=== PATIENT | male | born 1990 | race Caucasian/White ===

== ENCOUNTER 2018-05-17 10:52 | Observation (INO) ==
[2018-05-17] MEDS ORDERED: 0.9 % Sodium Chloride 1,000 ML IVC ONE (11:50)
[2018-05-17 12:39] LABS: Basophils # 0.1 K/mcL (0.0-0.2); Basophils % 1.1 %; Eosinophils # 0.1 K/mcL (0.0-0.6); Eosinophils % 1.7 %; Hematocrit 48.7 % (37.5-50.1); Hemoglobin 16.7 g/dL (12.9-16.9); Immature Granulocytes % 0.2 % (0-4); Lymphocytes # 2.2 K/mcL (0.6-4.6); Lymphocytes % 48.5 %; Mean Corpuscular HGB Conc 34.3 g/dL (31.6-35.5); Mean Corpuscular Hemoglobin 29.3 pg (28.0-33.3); Mean Corpuscular Volume 85.6 fL (83.0-100.0); Mean Platelet Volume 10.4 fL (9.4-12.4); Monocytes # 0.5 K/mcL (0.0-1.3); Monocytes % 10.3 %; Neutrophils # 1.8 K/mcL (1.6-8.9); Platelet Count 191 K/mcL (140-400); Red Blood Count 5.69 M/mcL (4.19-5.50); Red Cell Distribution Width 15.1 % (11.5-14.5); Segmented Neutrophils % 38.2 %
[2018-05-17 12:46] LABS: INR 1.2; Prothrombin Time 13.4 Seconds (9.4-12.1)
[2018-05-17 13:02] LABS: Bilirubin,Urine Large (Negative); Blood,Urine Negative (Negative); Clarity,Urine Turbid (Clear); Color,Urine Orange (Yellow); Glucose,Urine (UA) Normal (Normal); Ketones,Urine Negative (Negative); Leukocyte Esterase,Urine Trace (Negative); Nitrite,Urine Negative (Negative); PH,Urine 6.5 pH Units (5.0-8.0); Protein,Urine Negative (Neg-Trace); Specific Gravity,Urine 1.018 (1.010-1.025); Urobilinogen,Urine Normal (Normal)
[2018-05-17 13:03] LABS: Bacteria,Urine None Seen per hpf (None-Few); Hyaline Casts,Urine None Seen per lpf (None-Few); RBC,Urine 0-3 per hpf (0-3); Squamous Epithelial Cell,Urine None Seen per lpf (None-Few); WBC,Urine 0-3 per hpf (0-3)
[2018-05-17] MEDS ORDERED: *HR* Morphine 2 MG/ML SYRINGE IVP ONE (13:15)
[2018-05-17] MEDS ORDERED: Ondansetron 4 MG/2 ML VIAL IVP ONE (13:15)
[2018-05-17 13:16] LABS: Alanine Aminotransferase 1394 Units/L (7-52); Albumin 3.7 g/dL (3.5-5.7); Albumin/Globulin Ratio 1.2 (1.1-2.2); Alkaline Phosphatase 241 Units/L (34-104); Aspartate Amino Transferase 641 Units/L (13-39); BUN/Creatinine Ratio 10 (6-26); Bilirubin,Direct 6.4 mg/dL (0.0-0.2); Bilirubin,Indirect 3.4 mg/dL (0.0-1.2); Bilirubin,Total 9.8 mg/dL (0.3-1.0); Blood Urea Nitrogen 7 mg/dL (6-20); Calcium 9.3 mg/dL (8.6-10.3); Carbon Dioxide 30 mEq/L (23-29); Chloride 99 mEq/L (98-107); Globulin 3.2 g/dL (2.4-3.5); Glucose 95 mg/dL (70-105); Lipase 16 Units/L (11-82); Osmolality,Calculated 282 (280-300); Sodium 137 mEq/L (136-145); Total Protein 6.9 g/dL (6.4-8.9); eGFR For Non-African Americans > 60 (> 60)
[2018-05-17] MEDS ORDERED: Isovue-370 500 ML BOTTLE IVP ONE (13:27)
--- NOTE | 2018-05-17 13:39 | Emergency Department Note ---
Disposition Clinical Impression: Hepatitis Disposition: Admitted As Inpatient Condition: Fair Abdominal Pain HPI - General Chief Complaint: ED Abdominal Pain Stated Complaint: jaundice Time Seen by Provider: 05/17/18 12:02 Source: patient Mode of arrival: ambulatory Limitations: no limitations Nursing Notes Reviewed: Yes Vital Signs Reviewed: Yes - History of Present Illness HPI Narrative: Patient with a history of hepatitis B and recent diagnosis of influenza A positive at PCPs office earlier in the week presenting for evaluation of worsening right upper quadrant pain with associated jaundice. Symptoms have been progressively worse in nature. Nausea but no vomiting. Pain Scale: 5 - Related Data Home Medications Medication Instructions Recorded Confirmed RX: No Known Home Drugs 05/17/18 05/17/18 Allergies Allergy/AdvReac Type Severity Reaction Status Date / Time No Known Allergies Allergy Verified 05/17/18 11:00 Review of Systems: CONSTITUTIONAL: Weakness and fatigue without fever or chills. HEENT: Eyes: No visual changes. Ears, Nose, Throat: No hearing loss, difficulty talking or unable to swallow. SKIN: No rash or itching. CARDIOVASCULAR: No chest pain, chest pressure or chest discomfort. No palpitations or edema. RESPIRATORY: No shortness of breath, cough or sputum. GASTROINTESTINAL: Abdominal pain with nausea but no diarrhea GENITOURINARY: No burning on urination or hematuria. NEUROLOGICAL: No headache, dizziness, syncope, paralysis, ataxia, numbness or ti ngling in the extremities. No change in bowel or bladder control. MUSCULOSKELETAL: No muscle pain, back pain, joint pain or stiffness. Abdominal Pain PMH - Past Medical History Medical history: Reports: no medical history Male Surgical History: Reports: other - Social History Smoking status: Current every day smoker Alcohol use: Reports: occasionally Drug use: Reports: none Physical Exam General: Well appearing, nontoxic, no acute distress Head: Normocephalic Atraumatic Eyes: PERRL, EOMI, jaundice ENT: Airway patent, no stridor Neck: supple, no meningismus Chest: Lungs clear to auscultation bilateral Cardiac: Regular rate and rhythm, no murmurs, rubs or gallops Abdomen: soft, moderate tenderness the right upper quadrant, nondistended; no guarding, rebound, or tenderness to percussion Musculoskeletal: Calves symmetric, nontender. Skin: No rash, normal skin tone. Neuro: Alert and Oriented to person, place, and time; No obvious focal deficit. - General Limitations: no limitations General appearance: alert, in no apparent distress Course - Reevaluation(s) Reevaluation #1: Discussed findings as well as positive hepatitis A. Patient states continued nausea and feeling as these can vomit. Concern for inability to tolerate by mouth. Patient will be admitted for further management. - Consultations Consultation #1: Was asked by the hospitalist consult GI prior to admission. Consultation #2: GI recommends symptomatically management. Hydration and discharge once able to tolerate by mouth Consultation #3: Discussed with hospitalist. Patient accepted for admission. Vital Signs Temperature 97.7 F 05/17/18 10:56 Pulse Rate 87 05/17/18 10:56 Respiratory Rate 16 05/17/18 10:56 Blood Pressure 163/105 05/17/18 10:56 O2 Sat by Pulse Oximetry 98 05/17/18 10:56 Temperature 98.6 F 05/17/18 17:56 Pulse Rate 78 05/17/18 17:56 Respiratory Rate 16 05/17/18 17:56 Blood Pressure 156/90 05/17/18 17:56 O2 Sat by Pulse Oximetry 97 05/17/18 17:56 Oxygen Delivery Oxygen Delivery Room Air Abdominal Pain - Lab Data Result diagrams: 05/17/18 11:50 05/17/18 11:50 Lab Results 05/17/18 05/17/18 05/17/18 Range/Units 11:50 11:50 11:50 WBC 4.6 (4.3-11.1) K/mcL RBC 5.69 H (4.19-5.50) M/mcL Hgb 16.7 (12.9-16.9) g/dL Hct 48.7 (37.5-50.1) % MCV 85.6 (83.0-100.0) fL MCH 29.3 (28.0-33.3) pg MCHC 34.3 (31.6-35.5) g/dL RDW 15.1 H (11.5-14.5) % Plt Count 191 (140-400) K/mcL MPV 10.4 (9.4-12.4) fL Immature Gran % 0.2 (0-4) % Seg Neutrophils % 38.2 % Lymphocytes % 48.5 % Monocytes % 10.3 % Eosinophils % 1.7 % Basophils % 1.1 % Neutrophils # 1.8 (1.6-8.9) K/mcL Lymphocytes # 2.2 (0.6-4.6) K/mcL Monocytes # 0.5 (0.0-1.3) K/mcL Eosinophils # 0.1 (0.0-0.6) K/mcL Basophils # 0.1 (0.0-0.2) K/mcL PT 13.4 H (9.4-12.1) Seconds INR 1.2 Sodium 137 (136-145) mEq/L Potassium 4.0 (3.5-5.1) mEq/L Chloride 99 (98-107) mEq/L Carbon Dioxide 30 H (23-29) mEq/L BUN 7 (6-20) mg/dL Creatinine 0.68 L (0.70-1.30) mg/dL Est GFR ( Amer) > 60 (> 60) Est GFR (Non-Af Amer) > 60 (> 60) BUN/Creatinine Ratio 10 (6-26) Glucose 95 (70-105) mg/dL Calculated Osmolality 282 (280-300) Calcium 9.3 (8.6-10.3) mg/dL Total Bilirubin 9.8 H (0.3-1.0) mg/dL Direct Bilirubin 6.4 H (0.0-0.2) mg/dL Indirect Bilirubin 3.4 H (0.0-1.2) mg/dL AST 641 H (13-39) Units/L ALT 1394 H (7-52) Units/L Alkaline Phosphatase 241 H (34-104) Units/L Serum Total Protein 6.9 (6.4-8.9) g/dL Albumin 3.7 (3.5-5.7) g/dL Globulin 3.2 (2.4-3.5) g/dL Albumin/Globulin Ratio 1.2 (1.1-2.2) Lipase 16 (11-82) Units/L Urine Color (Yellow) Urine Clarity (Clear) Urine pH (5.0-8.0) pH Units Ur Specific Stuart (1.010-1.025) Urine Protein (Neg-Trace) mg/dL Urine Glucose (UA) (Normal) mg/dL Urine Ketones (Negative) mg/dL Urine Blood (Negative) Urine Nitrite (Negative) Urine Bilirubin (Negative) Urine Urobilinogen (Normal) mg/dL Ur Leukocyte Esterase (Negative) Urine Microscopic RBC (0-3) per hpf Urine Microscopic WBC (0-3) per hpf Ur Squamous Epith Cells (None-Few) per lpf Urine Bacteria (None-Few) per hpf Hyaline Casts (None-Few) per lpf Ur Culture Indicated? (NO) Acetaminophen < 10 L (10-20) mcg/mL Hepatitis A IgM Ab (Nonreactive) Hep Bs Antigen (Nonreactive) Hep B Core IgM Ab (Nonreactive) Hepatitis C Ab Screen (Nonreactive) 05/17/18 05/17/18 Range/Units 11:50 12:50 WBC (4.3-11.1) K/mcL RBC (4.19-5.50) M/mcL Hgb (12.9-16.9) g/dL Hct (37.5-50.1) % MCV (83.0-100.0) fL MCH (28.0-33.3) pg MCHC (31.6-35.5) g/dL RDW (11.5-14.5) % Plt Count (140-400) K/mcL MPV (9.4-12.4) fL Immature Gran % (0-4) % Seg Neutrophils % % Lymphocytes % % Monocytes % % Eosinophils % % Basophils % % Neutrophils # (1.6-8.9) K/mcL Lymphocytes # (0.6-4.6) K/mcL Monocytes # (0.0-1.3) K/mcL Eosinophils # (0.0-0.6) K/mcL Basophils # (0.0-0.2) K/mcL PT (9.4-12.1) Seconds INR Sodium (136-145) mEq/L Potassium (3.5-5.1) mEq/L Chloride (98-107) mEq/L Carbon Dioxide (23-29) mEq/L BUN (6-20) mg/dL Creatinine (0.70-1.30) mg/dL Est GFR ( Amer) (> 60) Est GFR (Non-Af Amer) (> 60) BUN/Creatinine Ratio (6-26) Glucose (70-105) mg/dL Calculated Osmolality (280-300) Calcium (8.6-10.3) mg/dL Total Bilirubin (0.3-1.0) mg/dL Direct Bilirubin (0.0-0.2) mg/dL Indirect Bilirubin (0.0-1.2) mg/dL AST (13-39) Units/L ALT (7-52) Units/L Alkaline Phosphatase (34-104) Units/L Serum Total Protein (6.4-8.9) g/dL Albumin (3.5-5.7) g/dL Globulin (2.4-3.5) g/dL Albumin/Globulin Ratio (1.1-2.2) Lipase (11-82) Units/L Urine Color Gregory A (Yellow) Urine Clarity Turbid A (Clear) Urine pH 6.5 (5.0-8.0) pH Units Ur Specific Stuart 1.018 (1.010-1.025) Urine Protein Negative (Neg-Trace) mg/dL Urine Glucose (UA) Normal (Normal) mg/dL Urine Ketones Negative (Negative) mg/dL Urine Blood Negative (Negative) Urine Nitrite Negative (Negative) Urine Bilirubin Large H (Negative) Urine Urobilinogen Normal (Normal) mg/dL Ur Leukocyte Esterase Trace H (Negative) Urine Microscopic RBC 0-3 (0-3) per hpf Urine Microscopic WBC 0-3 (0-3) per hpf Ur Squamous Epith Cells None Seen (None-Few) per lpf Urine Bacteria None Seen (None-Few) per hpf Hyaline Casts None Seen (None-Few) per lpf Ur Culture Indicated? YES A (NO) Acetaminophen (10-20) mcg/mL Hepatitis A IgM Ab Reactive H (Nonreactive) Hep Bs Antigen Nonreactive (Nonreactive) Hep B Core IgM Ab Nonreactive (Nonreactive) Hepatitis C Ab Screen Reactive H (Nonreactive)
[2018-05-17 13:42] LABS: Hepatitis B Surface Antigen Nonreactive (Nonreactive)
[2018-05-17 14:09] LABS: Acetaminophen < 10 mcg/mL (10-20)
[2018-05-17 14:12] LABS: Hepatitis B Core IgM Nonreactive (Nonreactive)
[2018-05-17 14:16] LABS: Hepatitis A Antibody IgM Reactive (Nonreactive)
[2018-05-17] MEDS ORDERED: 0.9 % Sodium Chloride 1,000 ML IVC SCH (15:15)
[2018-05-17] MEDS ORDERED: Naloxone 0.4 MG/ML INJ IVP PRN (16:17)
[2018-05-17] MEDS ORDERED: *HR* OxyCODONE Immed Rel 5 MG TABLET PO PRN (16:20)
--- NOTE | 2018-05-17 16:27 | Internal Med History&Physical ---
Date of Encounter: 05/17/18 Time of Encounter: 16:00 Internal Medicine - H&P: HPI Chief complaint: Abdominal pain Admitted From: Home Plans for Post Hospital Care: Home History of present illness: Mr. Huynh is a 27 year old male presented to ER for abdominal pain for 2 days with yellow eyes for 3-4 days. Past medical history is significant for history of IV drug use, tobacco abuse. Patient started to have right upper quadrant abdominal pain with yellow eyes and dark urine for about 2-3 days. Patient has nausea and vomited several times. Vomiting are stomach content, no blood in it, no coffee-ground emesis. Patient has on and off fever. Patient also has some flulike symptoms. In the emergency room, patient was found abdominal liver function with elevated AST and ALT and bilirubin. CT abdomen shows consistent with acute hepatitis. Hepatitis test shows hepatitis A positive, hepatitis B negative, hepatitis C result is pending. Patient was admitted for further management. Past Med Surg Social Fam HX - Past Medical History Medical history: no medical history - Past Surgical History Additional surgical history: eye sx - Social History Smoking Status: Current every day smoker Alcohol use: occasionally Drug use: none - Family History Mother History Unknown: Yes Internal Medicine - H&P: Meds No Known Home Drugs 05/17/18 [History] Allergy/AdvReac Type Severity Reaction Status Date / Time No Known Allergies Allergy Verified 05/17/18 11:00 All Systems PM: A 10-system review of systems was performed and is negative for pertinent findings except as documented above in the HPI. - Constitutional Vitals: Temp Pulse Resp BP Pulse Ox 97.7 F 83 17 149/95 99 05/17/18 10:56 05/17/18 13:39 05/17/18 12:56 05/17/18 13:39 05/17/18 13:39 Exam: Pt is AAO x 3, in NAD HEENT: NC/AT, PERRL, icterus Neck: Supple, no JVD, no LAD Lungs: CTA b/l Heart: S1S2, RRR Abd: Soft, tender on RUQ, BS present Ext: ROM wnl, no pedal edema Neuro: No focal deficit Internal Med - H&P Results - Labs CBC & Chem 7: 05/17/18 11:50 05/17/18 11:50 Labs: Short CBC 05/17/18 Range/Units 11:50 WBC 4.6 (4.3-11.1) K/mcL Hgb 16.7 (12.9-16.9) g/dL Hct 48.7 (37.5-50.1) % Plt Count 191 (140-400) K/mcL Neutrophils # 1.8 (1.6-8.9) K/mcL BMP 05/17/18 11:50 Sodium 137 Potassium 4.0 Chloride 99 Carbon Dioxide 30 H BUN 7 Creatinine 0.68 L Glucose 95 Calcium 9.3 Liver Function 05/17/18 Range/Units 11:50 Total Bilirubin 9.8 H (0.3-1.0) mg/dL Direct Bilirubin 6.4 H (0.0-0.2) mg/dL AST 641 H (13-39) Units/L ALT 1394 H (7-52) Units/L Alkaline Phosphatase 241 H (34-104) Units/L Albumin 3.7 (3.5-5.7) g/dL Urine 05/17/18 Range/Units 12:50 Urine Color [place] A (Yellow) Urine Clarity Turbid A (Clear) Urine pH 6.5 (5.0-8.0) pH Units Ur Specific [place] 1.018 (1.010-1.025) Urine Protein Negative (Neg-Trace) mg/dL Urine Glucose (UA) Normal (Normal) mg/dL - Impressions ITS Impressions Abdomen/Pelvis CT 05/17/18 13:27 IMPRESSION: Marked periportal edema along with gallbladder wall thickening. The gallbladder is relatively decompressed. Given the patient's history, findings are most compatible with hepatitis or other hepatocellular disease. Cholecystitis does remain in the differential but is considered less likely given the relative decompression of the gallbladder. Enlarged upper abdominal lymph nodes, which are presumably reactive. D/ / Amado Goode MD / Amdao Goode MD Interpreting Provider: Amado Goode MD - Assessment and Plan (1) Acute hepatitis Current Visit: Yes Status: Acute Assessment and plan: Patient has right upper quadrant pain. Liver function shows elevated liver enzymes and bilirubin. Hepatitis A tested positive. - Consider acute hepatitis - Closely monitor patient, symptomatic treatment - Consult GI (2) History of intravenous drug use in remission Current Visit: Yes Status: Acute Assessment and plan: Will also track hep C result, which is pending now (3) Tobacco abuse Current Visit: Yes Status: Acute Assessment and plan: Smoking cessation education. Place patient on nicotine patch (4) DVT prophylaxis Current Visit: Yes Status: Acute Assessment and plan: EPCDs, no anticoagulation because of acute hepatitis. - Time Spent With Patient Total time spent is greater than 50% in coordination of care (as documented) at patient's floor/unit and/or counseling patient: 40 minutes Greater than 35 minutes
[2018-05-17 17:11] LABS: Hepatitis C Virus Antibody Reactive (Nonreactive)
[2018-05-17] MEDS: 0.9 % Sodium Chloride 1,000 ML IVC SCH ×2 (18:15→23:42)
[2018-05-17] MEDS: Nicotine 21 MG PATCH.TD24 TD SCH (18:16)
[2018-05-17] MEDS: Ondansetron 4 MG/2 ML VIAL IVP SCH ×2 (20:05→23:52)
[2018-05-17] MEDS ORDERED: *HR* HYDROcodone/Acet 5/325 mg TABLET PO ONE (23:22)
--- NOTE | 2018-05-17 23:56 | Event Note ---
Date of Encounter: 05/17/18 Time of Encounter: 19:52 Alerted by patient's nurse STEPHANIE Larios that patient was requesting to speak with provider with family present as they had multiple questions. Went to see patient who is resting in bed with his girlfriend. No other family members present. Explained patient's hepatitis A is positive and hepatitis C is reactive. I stated that we would be sending the hepatitis C quant test out to determine positive status. I asked the pt. if he had a recent tattoo or had done IV drugs recently. He stated no new tattoo for years and that he had relapsed several weeks ago and used IV drugs. I explained that there is no current cure for HepA and that he could take anti-viral medications for HepC if he was determined to be positive. I explained that HepA is spread through oral/fecal route and that HepC is spread by contaminated blood/fluids through IV drug use, tattoos, and unprotected sex where open skin wounds may be present. I stated that his CT also showed findings compatible with hepatitis or other hepatocellular disease. Pts. girlfriend asked if she should be tested for hepatitis. I said yes, that it was a simple blood test. I asked if they had unprotected sex and they answered yes. I stated that it was very important that she be tested for HepA, B, and C. Pt. stated he is having severe pain in abdomen. I educated the pt. that he should not drink any alcohol or take any NSAIDS d/t his liver dysfunction. I informed him that Tylenol in lower doses is okay. Pt. and girlfriend expressed understanding and had no other questions at this time. I instructed the nurse to notify me immediately of any adverse changes.
[2018-05-18 00:17] LABS: Amphetamine Screen,Urine Negative ng/mL (Cutoff=1000); Barbiturate Screen,Urine Negative ng/mL (Cutoff=200); Benzodiazepines Screen,Urine Negative ng/mL (Cutoff=200); Cannabinoid Screen,Urine Positive ng/mL (Cutoff = 50); Cocaine Screen,Urine Positive ng/mL (Cutoff= 300); Opiate Screen,Urine Positive ng/mL (Cutoff=300); Phencyclidine Screen,Urine Negative ng/mL (Cutoff=25)
[2018-05-18 03:47] LABS: Hematocrit 41.4 % (37.5-50.1); Immature Granulocytes % 0.5 % (0-4); Lymphocytes # 2.4 K/mcL (0.6-4.6); Mean Corpuscular HGB Conc 34.1 g/dL (31.6-35.5); Mean Corpuscular Hemoglobin 29.3 pg (28.0-33.3); Mean Corpuscular Volume 85.9 fL (83.0-100.0); Mean Platelet Volume 10.6 fL (9.4-12.4); Monocytes # 0.4 K/mcL (0.0-1.3); Neutrophils # 1.3 K/mcL (1.6-8.9); Platelet Count 167 K/mcL (140-400); Red Blood Count 4.82 M/mcL (4.19-5.50); Red Cell Distribution Width 14.6 % (11.5-14.5); Segmented Neutrophils % 30.5 %
[2018-05-18 03:53] LABS: Hemoglobin 14.1 g/dL (12.9-16.9)
[2018-05-18 03:55] LABS: INR 1.3; Prothrombin Time 14.3 Seconds (9.4-12.1)
[2018-05-18] MEDS: Ondansetron 4 MG/2 ML VIAL IVP SCH ×2 (04:00→08:22)
[2018-05-18 04:06] LABS: BUN/Creatinine Ratio 7 (6-26); Blood Urea Nitrogen 4 mg/dL (6-20); Calcium 8.4 mg/dL (8.6-10.3); Carbon Dioxide 26 mEq/L (23-29); Chloride 105 mEq/L (98-107); Glucose 92 mg/dL (70-105); Magnesium 1.6 mg/dL (1.6-2.6); Osmolality,Calculated 283 (280-300); Potassium 3.7 mEq/L (3.5-5.1); Sodium 138 mEq/L (136-145); eGFR For Non-African Americans > 60 (> 60)
[2018-05-18 04:15] LABS: Platelet Estimate Slight Decrease (Normal); Reactive Lymphocytes Present (Not Present)
[2018-05-18 04:19] LABS: Albumin 3.1 g/dL (3.5-5.7); Albumin/Globulin Ratio 1.2 (1.1-2.2); Bilirubin,Direct 5.9 mg/dL (0.0-0.2); Bilirubin,Total 8.9 mg/dL (0.3-1.0); Globulin 2.6 g/dL (2.4-3.5); Total Protein 5.7 g/dL (6.4-8.9)
[2018-05-18 04:47] VITALS: BP 150/82
[2018-05-18] MEDS ORDERED: Ketorolac 15 MG/ML VIAL IVP PRN (07:26)
[2018-05-18] MEDS ORDERED: Ketorolac 30 MG/ML VIAL IVP PRN (07:26)
[2018-05-18] MEDS ORDERED: *HR* OxyCODONE Immed Rel 5 MG TABLET PO PRN (07:26)
[2018-05-18] MEDS: Nicotine 21 MG PATCH.TD24 TD SCH (08:23)
--- NOTE | 2018-05-18 10:00 | Discharge Summary ---
- NOTES TO OUTPATIENT PROVIDER Notes to Outpatient Provider: Patient was admitted for transaminitis secondary to hepatitis A. Was monitor overnight with clinical improvement as well as downtrending LFT. Hep C screen was also positive and was advised to follow-up with PCP for further treatment. Orders not resulted at time of discharge: Pending orders 05/17/18 12:50 Culture,Urine [RM] Stat 05/17/18 21:48 Hepatitis C Virus Quant Stat 05/19/18 04:00 Prothrombin Time INR [COAG] AM 0400 liver [Hepatic Panel] AM 0400 05/20/18 04:00 Prothrombin Time INR [COAG] AM 0400 liver [Hepatic Panel] AM 0400 05/21/18 04:00 Prothrombin Time INR [COAG] AM 0400 liver [Hepatic Panel] AM 0400 05/22/18 04:00 Prothrombin Time INR [COAG] AM 0400 liver [Hepatic Panel] AM 0400 Date of Encounter: 05/18/18 Time of Encounter: 07:30 - Discharge Diagnosis (1) Acute hepatitis Priority: Primary Status: Acute (2) History of intravenous drug use in remission Priority: Secondary Status: Acute (3) Tobacco abuse Priority: Secondary Status: Acute (4) DVT prophylaxis Priority: Secondary Status: Acute Hospital course: Mr. Huynh is a 27 year old male was admitted for abdominal pain and transaminitis secondary to hepatitis A. Was monitor overnight with clinical improvement as well as downtrending LFT. Hep C screen was also positive and was advised to follow-up with PCP for further treatment. Discharge discussed with: patient, family, nurse - Time Spent with Patient Total time spent providing and/or coordinating discharge services: 22 mins - Discharge Medications Prescriptions: New Tramadol HCl [Ultram] 50 mg PO TID PRN 4 Days #12 tab PRN Reason: Pain Home Medications: Tramadol HCl [Ultram] 50 mg PO TID PRN 4 Days #12 tab 05/18/18 [Rx] Allergies/Adverse Reactions: Allergy/AdvReac Type Severity Reaction Status Date / Time No Known Allergies Allergy Verified 05/17/18 11:00 Date of admission: 05/17/18 15:50 Primary care physician: PCP NONE Consults: 05/17/18 18:11 Consult to Nutrition [CONS] Routine Comment: Patient has lost >50 lbs Consulting Provider: NUTRITION Reason for Dietary Consult: MST Score Consult to Candle Pourer [CONS] Routine Reason for SW Consult: Patient does have financial concerns due to no insurance - Constitutional Vitals: Temp Pulse Resp BP Pulse Ox 98.6 F 70 12 150/82 98 05/18/18 04:45 05/18/18 04:45 05/18/18 04:45 05/18/18 04:45 05/18/18 04:45 Exam: General: AAO x 3, in NAD HEENT: mild scleral icterus Lungs: CTA b/l Heart: S1S2, RRR Abd: Soft, minimal tenderness on RUQ, Khanna's negative. No rebound/rigidity/guarding Neuro: No focal deficit, no asterixis - Patient Status Disposition: Home, Self-Care Condition: Fair Functional capacity at discharge: independent ambulation Overall status at discharge: patient is progressing back to baseline - Discharge Instructions Follow Up With: NONE,PCP [Primary Care Provider] - Additional Instructions: Follow up with PCP for Hep C tx as outpatient - Diet and Activity Activity: resume usual activities as tolerated Diet: advance to your usual diet
[2018-05-22 01:36] LABS: HCV Quant Log NOT DETECTED log IU/mL
[2018-05-22 09:53] LABS: HCV Quant Interpretation NOT DETECTED (Not Detected)
== END 2018-05-18 14:55 | disposition home or self-care (01) ==
LOC: EMEROOARM 10:52 → 3ANU 10:52 → SUATTDRO 15:50 → 3ANU 17:41
PROVIDERS: ADMIT Internal Medicine; ATTEND Internal Medicine